=== PATIENT | female | born 1965 | race Caucasian/White ===

== ENCOUNTER 2017-02-07 14:54 | Emergency (ER) | payer OTHER ==
[~2017-02-07] VITALS: Ht 152.4 cm; Wt 61.7 kg
--- NOTE | ~2017-02-07 | EKG ---
[address] [address] ELECTROCARDIOGRAM REPORT Name: CEE FRYE Room #: [facility]#: [id number] Admission: 02/07/17 Attend Phys: Discharge: 02/07/17 Date of : 61 Report #: [id number] THIS REPORT FOR: //name// [facility] ED Test Date: 2017-02-07 Test Time: 15:03:56 Pat Name: CEE FRYE Department: Room: Gender: F [employer] Work[employer]: 10 : 1965 Requested By: Otto Noel Order Number: [id number] MD: Rosalio Smith Measurements Intervals [place] Rate: 92 P: 48 [place]: 145 QRS: -31 QRSD: 92 T: 51 QT: 352 QTc: 436 Interpretive Statements Sinus rhythm Abnormal R-wave progression, late transition LVH with secondary repolarization abnormality Anterior ST elevation, probably due to LVH No previous ECG available for comparison Electronically Signed On 02-12-2017 12:19:19 CDT by Rosalio Smith [email or web address] <ELECTRONICALLY SIGNED> By: Rosalio Smith MD 02/12/17 1219 1503 150 Rosalio Smith MD /MAXIMILIAN
[~2017-02-07 14:54] MED LIST: CIPROFLOXACIN500 M1 PO; HYDROCHLOROTHIA25 M1 PO; KEFLEX500 MG PO; PERCOCET 5-3251 EACH PO; TAMSULOSIN HCL0.4 M1 PO; XANAX 0.5 MG0.5 MG PO; ZOFRAN 4 MG ORAL4 MG PO; ZOLOFT100 MG PO
[2017-02-07 16:07] LABS: ABSOLUTE NEUTROPHILS 9.6 thou/uL (1.4-8.2); BASOPHILS 0.5 % (0.0-2.0); EOSINOPHILS 0.5 % (0.0-3.0); HEMOGLOBIN 17.5 gm/dL (12.0-15.0); LYMPHOCYTES 14.3 % (24.0-44.0); MCH 29.2 pg (26.0-34.0); MCHC 34.2 g/dL (28.0-37.0); MCV 85.3 fL (80.0-100.0); MONOCYTES 7.1 % (1.0-8.0); PLATELET COUNT 182 thou/uL (150-400); POLYS 77.6 % (36.0-66.0); RBC 5.98 mil/uL (4.20-5.00); RDW 14.4 % (10.5-14.5); WBC 12.4 thou/uL (4.0-11.0)
[2017-02-07 16:17] LABS: ANION GAP 11 mmol/L (7-16); BUN 9 mg/dL (7-18); CALCIUM 9.5 mg/dL (8.5-10.1); CHLORIDE 103 mmol/L (98-107); CO2 24 mmol/L (21-32); CREATININE 0.4 mg/dL (0.6-1.3); GLUCOSE 88 mg/dL (70-99); SODIUM 138 mmol/L (136-145)
[2017-02-07 16:21] LABS: POTASSIUM 4.2 mmol/L (3.5-5.1)
[2017-02-07 16:34] LABS: MANUAL DIFF NO
[2017-02-07 16:35] LABS: NT-PRO BRAIN NAT PEPTIDE 32 pg/mL (<300); TROPONIN-I < 0.04 ng/mL (<0.04-0.07)
[2017-02-07] MEDS ORDERED: HYDROXYZINE HCL25 M1 PO (17:01)
[2017-02-07 17:32] VITALS: BP 127/89
== END 2017-02-07 17:33 | disposition home or self-care (01) ==
LOC: ER 14:54
PROVIDERS: Nurse Practitioner
DX: F41.9 Anxiety disorder, unspecified (principal); F32.9 Major depressive disorder, single episode, unspecified; F17.210 Nicotine dependence, cigarettes, uncomplicated; F12.10 Cannabis abuse, uncomplicated; Z88.1 Allergy status to other antibiotic agents